=== PATIENT | male | born 1935 | race Caucasian/White ===

== ENCOUNTER 2022-07-03 03:01 | Inpatient (IN) | payer MEDICARE, OTHER ==
[~2022-07-03] VITALS: Ht 188 cm; Wt 82.0 kg
[2022-07-03 13:42] LABS: BASOPHILS ABSOLUTE AUTO 0.06 K/mm3 (0.00-0.23); BASOPHILS PERCENT AUTO 1 % (0-2); EOSINOPHILS ABSOLUTE AUTO 0.06 K/mm3 (0.00-0.68); EOSINOPHILS PERCENT AUTO 1 % (0-6); Hematocrit 42.7 % (37.0-53.0); Hemoglobin 14.2 g/dL (13.5-17.5); IMMATURE GRAN ABSOLUTE AUTO 0.05 K/mm3 (0.00-0.10); IMMATURE GRAN PERCENT AUTO 0 % (0-1); LYMPHOCYTES ABSOLUTE AUTO 1.18 K/mm3 (0.84-5.20); LYMPHOCYTES PERCENT AUTO 10 % (21-46); MONOCYTES ABSOLUTE AUTO 1.45 K/mm3 (0.16-1.47); MONOCYTES PERCENT AUTO 12 % (4-13); Mean Corpuscular HGB 32.6 pg (26.0-34.0); Mean Corpuscular HGB Conc 33.3 g/dL (31.5-36.5); Mean Corpuscular Volume 98 fL (80-100); Mean Platelet Volume 9.9 fL (9.1-12.4); NEUTROPHILS PERCENT AUTO 76 % (41-73); Platelet Count 217 K/mm3 (150-400); RDW Coefficient Variation 13.3 % (11.7-14.2); RDW Standard Deviation 48.3 fL (35.1-46.3); Red Blood Cell Count 4.36 M/mm3 (4.30-5.90)
[2022-07-03 14:13] LABS: Albumin, Blood 3.2 g/dL (3.4-5.0); Bilirubin, Total 0.9 mg/dL (0.1-1.0); Bun/Creatinine Ratio 12.7 (12.0-20.0); Calcium, Blood 8.9 mg/dL (8.5-10.1); Creatinine, Blood 2.37 mg/dL (0.60-1.20); Globulin, Blood 3.1 g/dL (2.2-4.0); Potassium, Blood 4.5 mmol/L (3.5-5.5); Total Protein, Blood 6.3 g/dL (6.4-8.2)
[2022-07-03 14:32] LABS: Creatine Kinase MB 3.5 ng/mL (0.0-3.6)
--- NOTE | 2022-07-03 16:34 | NUR ---
END OF SHIFT: PATIENT ARRIVED FROM [place] [facility]IA [facility], FOR ACUTE CVA, WITH ELEVATED TROP. PATIENT LAST TROP 395. PATIENT RESPONDS TO NAME. IS AND HAS BEEN RECIEVING Q2 TURNS. PATIENT NOW HAS A PAULA POWERGLIDE. PATIENT IN JANETTE DUE TO SAFETY OF SELF AND LINES. PATIENT IS HAVING INCREASED MOTOR STRENGTH IN ALL EXTREMS, PATIENT BEEN CHNAGED DUE TO INCONTINENCY MULTIPLE TIMES BY STAFF. PATIENT IN NO ACUTE SIGN OF DISTRESS. CARDIOLOGY SEEN, PLEASE SEE NOTE. NEURO IS SUPPOSE TO BE SEEING THE PATIENTDAYSI PATIENT IS OFF TO MRI PREMEDICATED BEFORE TRANSPORT WILL SEE IF MRI WAS POSSIBLE. PATIENT HAS ATTENDS IN PLACE DUE TO INCONTINENCY MIXED. WILL CONTINUE TO MONITOR UNTIL SHIFT CHANGE. PATIENT ON RA SPO2>96% NO CONCERNS FROM THIS AMMUNITION ASSEMBLY I LABORER AT THIS TIME.
[2022-07-04 05:10] LABS: BASOPHILS PERCENT AUTO 1 % (0-2); EOSINOPHILS ABSOLUTE AUTO 0.37 K/mm3 (0.00-0.68); EOSINOPHILS PERCENT AUTO 4 % (0-6); Hematocrit 41.6 % (37.0-53.0); Hemoglobin 13.4 g/dL (13.5-17.5); IMMATURE GRAN ABSOLUTE AUTO 0.02 K/mm3 (0.00-0.10); IMMATURE GRAN PERCENT AUTO 0 % (0-1); LYMPHOCYTES ABSOLUTE AUTO 1.65 K/mm3 (0.84-5.20); LYMPHOCYTES PERCENT AUTO 17 % (21-46); MONOCYTES PERCENT AUTO 9 % (4-13); Mean Corpuscular HGB 31.7 pg (26.0-34.0); Mean Corpuscular HGB Conc 32.2 g/dL (31.5-36.5); Mean Corpuscular Volume 98 fL (80-100); NEUTROPHILS ABSOLUTE AUTO 6.69 K/mm3 (1.96-9.15); NEUTROPHILS PERCENT AUTO 69 % (41-73); Platelet Count 213 K/mm3 (150-400); RDW Coefficient Variation 13.3 % (11.7-14.2); RDW Standard Deviation 48.7 fL (35.1-46.3); Red Blood Cell Count 4.23 M/mm3 (4.30-5.90); White Blood Cell Count 9.73 K/mm3 (4.00-11.30)
[2022-07-04 05:25] LABS: Albumin, Blood 3.1 g/dL (3.4-5.0); Albumin/Globulin Ratio 1.1 (0.8-1.8); Calcium, Blood 8.2 mg/dL (8.5-10.1); Creatinine, Blood 2.73 mg/dL (0.60-1.20); Globulin, Blood 2.9 g/dL (2.2-4.0); Potassium, Blood 3.9 mmol/L (3.5-5.5)
--- NOTE | 2022-07-04 06:50 | NUR ---
SHIFT SUMMARY: PATIENT HAS HAD INTERMITTENT MOMENTS OF ALERTNESS - YELLING "I DON'T CARE" AND "SHIT, SHIT, SHIT" DURING REPOSITIONING OR ATTENDS CHANGES. A&O X1. HAS BEEN ACTIVE WITH ALL 4 EXTREMETIES, SLIGHT FACIAL DROOP TO LEFT SIDE, LEFT HAND WEAK, SLOW TO RESPOND TO COMMANDS IF RESPONDS AT ALL. RIGHT EYE OPENED BRIEFLY ~0430, BUT LEFT EYE IS MOST OFTEN SEEN OPEN - BOTH EYES CLOSED MAJORITY OF SHIFT EVEN WHEN PATIENT SPEAKING. BP PERMISSIVELY HIGH, AFEBRILE, O2 SATS >94% RA. CBGS HAVE NOT REQUIRED COVERAGE. URINE STILL BLOOD TINGED THOUGH MORE PINK THAN BEGINNING OF SHIFT. FLUIDS COMPLETE. MEDICATED PER EMAR. PATIENT NPO. DAUGHTER VERENA AT BEDSIDE T/O NIGHT TO PREVENT NEED FOR RESTRAINTS. RESTRAINTS NOT IN PLACE WHEN THIS RN BEGAN SHIFT. BED LOW WITH 3 SIDE RAILS UP. CALL LIGHT IN REACH AND DAUGHTER AT BEDSIDE. WILL CONTINUE TO MONITOR UNTIL REPORT TO DAY RN.
[2022-07-04 08:38] LABS: CHOL/HDL RATIO 3.9; Cholesterol 170 mg/dL (50-200); HDL Cholesterol 44 mg/dL (>39); LDL/HDL RATIO 2.3; Low Density Lipoprotein Chol 102 mg/dL (0-110); Triglycerides 121 mg/dL (30-160); Very Low Density Lipoprot Chol 24 mg/dL (6-32)
[2022-07-04 11:43] LABS: Source, Urine Foley catheter
[2022-07-04 12:05] LABS: Appearance, Urine Bloody (Clear); Bilirubin, Urine Neg (Neg); Blood, Urine 5+ (Neg); Color, Urine Brown (P-Yellow); Glucose Qualitative, Urine 2+ (Neg); Ketones, Urine 2+ (Neg); Leukocyte Esterase, Urine 1+ (Neg); Nitrite, Urine Pos (Neg); Protein, Urine 4+ (Neg); Urobilinogen, Urine 1+ (Normal)
[2022-07-04 12:34] LABS: Red Blood Cells, Urine TNTC /hpf (0-2)
[2022-07-04 12:35] LABS: Bacteria Many /hpf; Squamous Epithelial Cells Rare /hpf (Few)
--- NOTE | 2022-07-04 17:42 | NUR ---
SHIFT SUMMARY; ASSUMED CARE AT 0700. DAUGHTER AT BEDSIDE. A/A/OX1-2. ORIENTED AND FOLLOWS DIRECTIONS AT TIMES, AGITATED AND FIDGETY AT TIMES. MOVES ARMS BILATERALLY AND REACHES FOR THINGS. BILATERAL LEG WEAKNESS, BUT MOVES BOTH EQUALLY. DIFFICULTY FOLLOWING INSTRUCTIONS. BEEF CATTLE GRAZIER EQUAL, LEFT SIDE FACIAL DROOP NOTED WITH SLURRED GARBLED SPEECH AT TIMES. NS INFUSING AT 75ML HOUR, KIRAN PLACED TODAY DRAINING TO GRAVITY. DARK RED URINE DRAINING INTIALLY, GRADUALLY LIGHTENING. WAS TOLD BY PREVIOUS RN POSSIBLE DIFFICULTY KIRAN INSERTION ATTEMPT AT TRANSFERRING HOSPITAL. COUDE PLACED WITHOUT DIFFICULTY. MEPILEX TO COCCYX, Q2 REPOSITIONING, ALTHOUGH MOVES SELF FREQUENTLY ON BED. VSS, WILL CONTINUE TO MONITOR AND TREAT UNTIL CHANGE OF SHIFT.
--- NOTE | 2022-07-05 03:55 | NUR ---
CARE ASSUMPTION: PATIENT AWAKES AT 1940, PULLS AT LINES AND TELE LEADS, NS INFUSING AT 75 MLS/HR. BP PERMISSIVELY HIGH, OTHER VS WNL ON RA. DANI BENAVIDES AT BEDSIDE STATES PATIENT IS NOT A SMOKER AND DOES NOT HAVE A HX OF SMOKING, IN CONTRADICTION WITH MD NOTES. PATIENT PULLED POWERGLIDE X2 - NO IV ACCESS AT THIS TIME. MEDICATED PER EMAR. BED LOW WITH ALARM SET.
[2022-07-05 04:24] LABS: BASOPHILS ABSOLUTE AUTO 0.12 K/mm3 (0.00-0.23); BASOPHILS PERCENT AUTO 1 % (0-2); EOSINOPHILS ABSOLUTE AUTO 0.86 K/mm3 (0.00-0.68); EOSINOPHILS PERCENT AUTO 9 % (0-6); Hematocrit 41.1 % (37.0-53.0); Hemoglobin 13.6 g/dL (13.5-17.5); IMMATURE GRAN ABSOLUTE AUTO 0.06 K/mm3 (0.00-0.10); IMMATURE GRAN PERCENT AUTO 1 % (0-1); LYMPHOCYTES ABSOLUTE AUTO 1.83 K/mm3 (0.84-5.20); LYMPHOCYTES PERCENT AUTO 18 % (21-46); MONOCYTES ABSOLUTE AUTO 0.84 K/mm3 (0.16-1.47); MONOCYTES PERCENT AUTO 8 % (4-13); Mean Corpuscular HGB 31.8 pg (26.0-34.0); Mean Corpuscular HGB Conc 33.1 g/dL (31.5-36.5); Mean Corpuscular Volume 96 fL (80-100); Mean Platelet Volume 9.8 fL (9.1-12.4); NEUTROPHILS ABSOLUTE AUTO 6.36 K/mm3 (1.96-9.15); NEUTROPHILS PERCENT AUTO 63 % (41-73); Platelet Count 216 K/mm3 (150-400); RDW Coefficient Variation 13.2 % (11.7-14.2); RDW Standard Deviation 46.5 fL (35.1-46.3); Red Blood Cell Count 4.28 M/mm3 (4.30-5.90); White Blood Cell Count 10.07 K/mm3 (4.00-11.30)
[2022-07-05 04:39] LABS: Albumin, Blood 3.3 g/dL (3.4-5.0); Albumin/Globulin Ratio 1.1 (0.8-1.8); Bun/Creatinine Ratio 14.9 (12.0-20.0); Calcium, Blood 8.6 mg/dL (8.5-10.1); Creatinine, Blood 1.61 mg/dL (0.60-1.20); Globulin, Blood 3.1 g/dL (2.2-4.0); Total Protein, Blood 6.4 g/dL (6.4-8.2)
--- NOTE | 2022-07-05 06:11 | NUR ---
SHIFT SUMMARY: PATIENT VS WITHIN MD'S PARAMETERS ON RA. MOVEMENT/CONTROL OF LEFT LEG HAS INCREASED T/O SHIFT. PATIENT'S PRODUCTIVITY ENGINEER IN BOTH HANDS ARE EQUAL AT THIS TIME AND BOTH EYES HAVE BEEN OPENIN WITH MORE FREQUENCY. PATIENT STILL LABILE IN FOLLOWING DIRECTIONS, BUT DIFFICULT TO ASSESS IF R/T DEFICIT OR "BEING A STUBBORN OLD MAN" PER FAMILY. PATIENT DID STICK TONGUE OUT STRAIGHT OF HIS OWN ACCORD - NOT UNDER DIRECTION - THIS AM. PATIENT BECAME INCREASINGLY AGITATED AND RESTLESS ~2100. MEDICATED PER EMAR WITH LIMITED TO NO EFFECT. BENADRYL AND ATIVAN DOSE RESULTED IN 90 MIN OF SLEEP. GRANDSON AT BEDSIDE T/O NIGHT - FAMILY DOES NOT WANT RESTRAINTS OUT OF CONCERN WOULD RESULT IN MORE AGITATION. PATIENT DOES NOT HAVE IV ACCESS AT THIS TIME R/T FIGHTING AGAINST RNS ATTEMPTING TO PLACE POWERGLIDES/IVS. PATIENT HR 160S FOR A FEW SECONDS AT 0600. BED LOW WITH CALL LIGHT IN REACH AND GRANDSON AT BEDSIDE. WILL CONTINUE TO MONITOR UNTIL AM REPORT.
--- NOTE | 2022-07-05 18:06 | NUR ---
SHIFT SUMMARY; ASSUMED CARE AT 0700. SLEEPING ON ARRIVAL. UP MOST OF NIGHT PER NOC SHIFT RN. MEDICATED FOR AGITATION WITH ZYPREXA. ARROUSES TO PAINFUL STIMULI. VSS, Q2 TURNS, LINEN CHANGE AND PARTIAL BED BATH, ORAL CARE AND CATH CARE COMPLETE. WAKES IN AFTERNOON AND C/O PAIN TO LEFT HIP AND RIGHT ELBOW, DR. ROCHA UPDATED, XRAY'S ORDERED. MEPILEX TO COCCYX, WILL CONTINUE TO MONITOR AND TREAT UNTIL CHANGE OF SHIFT.
--- NOTE | 2022-07-05 19:00 | NUR ---
ASSUMED CARE/CALL TO MD PT A/O TO SELF AND FAMILY ONLY. TRYING TO GET OOB, AND PULLING AT KIRAN. WAS COMABTIVE WITH REPOSITIONING BACK IN BED. DANGLED AT BEDSIDE. FOLLOWS SIMPLE COMMANDS AT TIMES. FAMILIY AT BEDSIDE. LUNG SOUNDS DIM T/O. PT BREATHING VERY SHALLOW. ON RA, SATS GREATER THAN 92%. PUPILS EQUIL, RN HOSPICE EQUIL, NO DEFICTS NOTED. MOVES ALL EXTREMITIES SPONTANEOUSLY. KIRAN IN PLACE, DRAINING TO GRAVITY. DR TAN NOTIFIED OF PT CONTINUOUSLY TRYING TO GET OOB, PULLING AT KIRAN AND KICKING AT STAFF. ORDERS RECIEVED FOR MEDICATIONS. WHEN THIS RN WENT TO ADMINISTER MEDS, PT FAMILY REQUESTED TO TRY RESTRAINTS AND 'HOLD OFF' ON MEDICATIONS. DR TAN MADE AWARE AND ORDERS RECIEVED.
--- NOTE | 2022-07-06 06:01 | NUR ---
SHIFT SUMMARY PT SLEPT MAJORITY OF NIGHT. AWAKE INTERMITTENTLY TRYING TO GET OOB, AND PULLING AT GOWN/BLANKETS. NO ACUTE EVENTS. T/O NIGHT.
[2022-07-06 11:41] LABS: BASOPHILS ABSOLUTE AUTO 0.13 K/mm3 (0.00-0.23); BASOPHILS PERCENT AUTO 1 % (0-2); EOSINOPHILS ABSOLUTE AUTO 1.03 K/mm3 (0.00-0.68); EOSINOPHILS PERCENT AUTO 10 % (0-6); Hematocrit 41.3 % (37.0-53.0); Hemoglobin 13.9 g/dL (13.5-17.5); IMMATURE GRAN ABSOLUTE AUTO 0.03 K/mm3 (0.00-0.10); IMMATURE GRAN PERCENT AUTO 0 % (0-1); LYMPHOCYTES ABSOLUTE AUTO 1.34 K/mm3 (0.84-5.20); LYMPHOCYTES PERCENT AUTO 14 % (21-46); MONOCYTES ABSOLUTE AUTO 1.06 K/mm3 (0.16-1.47); MONOCYTES PERCENT AUTO 11 % (4-13); Mean Corpuscular HGB 32.7 pg (26.0-34.0); Mean Corpuscular HGB Conc 33.7 g/dL (31.5-36.5); Mean Corpuscular Volume 97 fL (80-100); Mean Platelet Volume 9.8 fL (9.1-12.4); NEUTROPHILS ABSOLUTE AUTO 6.32 K/mm3 (1.96-9.15); NEUTROPHILS PERCENT AUTO 64 % (41-73); Platelet Count 226 K/mm3 (150-400); RDW Standard Deviation 46.6 fL (35.1-46.3); Red Blood Cell Count 4.25 M/mm3 (4.30-5.90); White Blood Cell Count 9.91 K/mm3 (4.00-11.30)
[2022-07-06 12:00] LABS: Bun/Creatinine Ratio 16.8 (12.0-20.0); Creatinine, Blood 1.49 mg/dL (0.60-1.20); Potassium, Blood 3.9 mmol/L (3.5-5.5)
[2022-07-06 13:39] LABS: Base Excess Venous -0.3 mmol/L; Bicarbonate Venous 23.4 mmol/L (24.0-30.0); PCO2 Venous 45.9 mmHg (38-42); pH Blood Venous 7.35 (7.34-7.37)
[2022-07-06 15:04] LABS: Free Thyroxine 1.12 ng/dL (0.70-1.60)
[2022-07-06 15:07] LABS: Triiodothyronine, Free 1.46 pg/mL (2.18-3.98)
--- NOTE | 2022-07-06 18:14 | NUR ---
SHIFT SUMMARY; ASSUMED CARE AT 0700. SLEEPING ON ARRIVAL BUT WAKES EASILY TO VERBAL STIMULI. COOPERATIVE WITH CARE. RESTRAINTS DC'D. FAMILY AT BEDSIDE, WORKS WITH PT/OT/ST. PO INTAKE MINIMAL, IV FLUIDS RESTARTED PER ORDERS. WHILE WORKING WITH PT WAS SITTING IN RECLINER CHAIR AND BECAME "NON RESPONSIVE". STARES TO SIDE, PUPILS FIXED, DOES NOT BLINK, BODY RIDGID. UNABLE TO VERBALLY OR PAINFULL ARROUSE. EPISODE LASTS APPROX 3 MINS, THEN GRANDUALLY STARTS TO SPEAK AND MOVE EXTREMETIES. DR. NELSON NOTIFIED, HEAD CT ORDERED. BECOMES ADJITATED IN LATE AFTERNOON, GRABS AND PULLS AND STAFF, IV, BED RAILS, AND ATTEMPTING TO CRAWL OUT OF BED, YELLS AT STAFF TO GET THE "HELL OUT OF MY ROOM". MULTIPLE ATTEMPTS TO REDIRECT FAILS. BILATERAL WRIST RESTRAINTS PLACED FOR PT SAFTEY. EDUCATED FAMILY. BED BATH, ORAL CARE AND LINEN CHANGE TODAY. VSS, WILL CONTINUE TO MONITOR AND TREAT UNTIL CHANGE OF SHIFT.
--- NOTE | 2022-07-06 19:15 | NUR ---
ASSUMED CARE OF PT @1900. BEDSIDE REPORT GIVEN. PT ALERT BUT CONFUSED. DIFFICULT TO UNDERSTAND. LIFTING LEGS TO HANDS AND PULLING AT KIRAN CATHETER. PT PUTTING LEGS OVER SIDE OF BED TRYING TO GET UP. STATING HE NEEDS TO "GET OUT OF HERE." PT REDIRECTABLE AT TIMES. IV FLUIDS INFUSING @75MLS/HR. SBWR IN PLACE.
[2022-07-07 03:50] LABS: BASOPHILS ABSOLUTE AUTO 0.11 K/mm3 (0.00-0.23); BASOPHILS PERCENT AUTO 1 % (0-2); EOSINOPHILS ABSOLUTE AUTO 1.05 K/mm3 (0.00-0.68); EOSINOPHILS PERCENT AUTO 14 % (0-6); Hemoglobin 14.7 g/dL (13.5-17.5); IMMATURE GRAN ABSOLUTE AUTO 0.02 K/mm3 (0.00-0.10); IMMATURE GRAN PERCENT AUTO 0 % (0-1); LYMPHOCYTES ABSOLUTE AUTO 1.34 K/mm3 (0.84-5.20); LYMPHOCYTES PERCENT AUTO 17 % (21-46); MONOCYTES ABSOLUTE AUTO 0.72 K/mm3 (0.16-1.47); MONOCYTES PERCENT AUTO 9 % (4-13); Mean Corpuscular HGB 31.9 pg (26.0-34.0); Mean Corpuscular HGB Conc 32.7 g/dL (31.5-36.5); Mean Corpuscular Volume 98 fL (80-100); Mean Platelet Volume 9.7 fL (9.1-12.4); NEUTROPHILS ABSOLUTE AUTO 4.54 K/mm3 (1.96-9.15); NEUTROPHILS PERCENT AUTO 58 % (41-73); Platelet Count 193 K/mm3 (150-400); RDW Coefficient Variation 12.9 % (11.7-14.2); RDW Standard Deviation 46.5 fL (35.1-46.3); Red Blood Cell Count 4.61 M/mm3 (4.30-5.90); White Blood Cell Count 7.78 K/mm3 (4.00-11.30)
--- NOTE | 2022-07-07 04:00 | NUR ---
CALL TO PHYSICIAN. DR HUMMEL NOTIFIED OF PT HYPERTENSION. HYDRALAZINE ADDED TO EMAR
[2022-07-07 04:15] LABS: Albumin, Blood 3.2 g/dL (3.4-5.0); Anion Gap 5 mmol/L (6-16); Blood Urea Nitrogen 25 mg/dL (8-24); CO2, Blood 25 mmol/L (21-32); Calcium, Blood 8.4 mg/dL (8.5-10.1); Chloride, Blood 111 mmol/L (98-108); Creatinine, Blood 1.39 mg/dL (0.60-1.20); Glomerular Filtration Rate 49 (60-); Glucose, Blood 105 mg/dL (70-99); Phosphorus, Blood 2.7 mg/dL (2.5-4.9); Potassium, Blood 3.8 mmol/L (3.5-5.5); Sodium, Blood 141 mmol/L (136-145)
--- NOTE | 2022-07-07 06:29 | NUR ---
SUMMARY NO ACUTE EVENTS OVERNIGHT. PT DID NOT HANDLE CRUSHED PILLS ORALLY WELL AT EVENING MEDICATION ADMINISTRATION. WEAK COUGH AND UNABLE TO SWALLOW WELL. PT BECAME RESTLESS AND PULLING AT KIRAN CATHETER AND TRYING TO GET OUT OF BED. PT CALMED AND WENT TO SLEEP AFTER RESTRAINTS APPLIED. PT REMAINED CALM AND ASLEEP REMAINDER OF SHIFT. HYPERTENSION SBP >180 NOTED ON 0400 VITALS. HYDRALAZINE ORDERED IV PER DR TAN, 10MG ADMINISTERED, SBP 130-160'S. IV FLUIDS INFUSING. HR 80'S. RR 14-18. SPO2 >94%. KIRAN CATHETER IN PLACE AND DRAINING DANIELLA URINE TO GRAVITY.
--- NOTE | 2022-07-07 16:15 | NUR ---
Met with Pt's 2 daughters this afternoon. Offered active listening and answered questions. Discussed Pt's wishes for code status and discussed options for life sustaining treatment. Daughters report discussing with Pt's spouse and family feels Pt would not want CPR or intubation. Pt would be agreeable to defibrilation. Spoke with Dr Petersen and relayed Pt's wishes for code status. [facility] for Limited Code of defibrilation only per V/O from Dr Petersen.
--- NOTE | 2022-07-07 17:22 | NUR ---
PT WAS INITIALLY LETHARGIC THIS MORNING, WOULD NOT OPEN EYES VOLUNTARILY AND ANSWERED ALL ORIENTATION QUESTIONS WITH "NO." PT BECAME MORE ALERT THROUGH THE MORNING, AND BY NOON WAS SITTING UP SPEAKING WITH STAFF, HOWEVER STILL CONFUSED. PT WAS ABLE TO WORK WITH SPEECH THERAPY AT LUNCHTIME, CHANGED TO PUREE DIET. PT DID WELL ON NEW DIET, HOWEVER HAD A COUGHING FIT WITH MASHED POTATOES. AROUND 1500 PATIENT BECAME AGITATED AND COMBATIVE, STARTED YELLING AND SWEARING AT STAFF. PT BEGAN SWINGING LIMBS AND PULLING AT LINES. X4 SOFT EXTREMITY RESTRAINTS APPLIED. PT BECAME QUEIT AND NAPPED THIS AFTERNOON. PT WAS AWAKE AND INTERACTING WITH FAMILY BY DINNER TIME, ABLE TO TOLERATE PO INTAKE WELL AT THAT TIME.
--- NOTE | 2022-07-07 21:15 | NUR ---
UPDATE PT DISCONNECTED KIRAN CATH BAG FROM KIRAN CATH. CATH STILL IN PLACE DRAINING URINE. CONNECTED SITE CLEANED THOROUGHLY THEN NEW KIRAN BAG CONNECTED TO SITE. CONNECTION SITE SECURED WITH TAPE. KIRAN PATENT AND DRAINING TO GRAVITY.
[2022-07-08 04:47] LABS: Albumin, Blood 3.1 g/dL (3.4-5.0); Anion Gap 8 mmol/L (6-16); Blood Urea Nitrogen 19 mg/dL (8-24); Bun/Creatinine Ratio 13.9 (12.0-20.0); CO2, Blood 24 mmol/L (21-32); Calcium, Blood 8.2 mg/dL (8.5-10.1); Chloride, Blood 112 mmol/L (98-108); Creatinine, Blood 1.37 mg/dL (0.60-1.20); Glomerular Filtration Rate 50 (60-); Glucose, Blood 128 mg/dL (70-99); Phosphorus, Blood 1.9 mg/dL (2.5-4.9); Potassium, Blood 3.8 mmol/L (3.5-5.5); Sodium, Blood 144 mmol/L (136-145)
--- NOTE | 2022-07-08 06:28 | NUR ---
SHIFT SUMMARY PT HAS BEEN A/O ONLY TO SELF AND OCCASIONAL FAMILY MEMBER. PT OFTEN BECOMES CONFUSED TO HIS SURROUNDINGS AND CAN BECOME AGITATED WITH STAFF AND ATTEMPT TO HIT STAFF WITH HIS HANDS. PT HAS BEEN COOPERATIVE T/O MOST OF MY SHIFT HOWEVER. PT MAINTAINS SPO2 >95% ON RA WITH NO SOB OR DYSPNEA NOTED AT REST. SPEECH CAN BECOME GARBLED AT TIMES AND HIS MENTATION WAXES AND WANES. GROSS MOVEMENT WAS RELATIVELY EQUAL BILAT. PRESSURES AND HR HAVE BEEN STABLE T/O THE SHIFT WITH NO ACUTE CHANGES. MORNING LABS SHOWED PT'S PHOS HAS DECREASED TO 1.9 FROM 2.7. MD NOTIFIED AND PHOS REPLACEMENT HAS BEEN ORDERED. VSS, NADN T/O THE SHIFT
--- NOTE | 2022-07-08 14:48 | NUR ---
END OF SHIFT: PATIENT IS ALERT AND ORIENTED X 1-2, PATIENT HAS BEEN OUT OF RESTRAINTS SINCE THIS AM, PATIENT SLEPT MOST OF THE MORNING LEADING ME TO WAIT UNTIL ALERT ENOUGH TO TAKE MEDICATIONS. ST SEEN PATIENT AND INCREASED TO FULL NECTAR BY CUP. PATIENT HAS WORKED WITH PT, AND IS A 1 P ASSIST WITH FWW AND GAIT BELT. DC'D KIRAN AND TELEMETRY PATIENT HAS BEEN PULLING AT THEM MULTIPLE TIMES WHICH CAUSED SOME VERY MINOR BLEEDING FROM THE URETHRA. PROVIDER AWARE. PATIENT HAS BEEN COOPERATIVE WITH CARE ONCE CORRECTLY DEMONSTRATED AND INSTRUCTED. PATIENT HAS BEEN IN THE CHAIR SINCE LUNCH. PATIENT DENIES CHEST PAIN/PRESSURE AT THIS TIME. PATIENT HAS BEEN ON RA, SPO2 >96%. PATIENT HAD A SMALL BM TODAY. IV HAS BEEN REMOVED AND ALL MEDS ARE ORAL CRUSHED IN APPLESAUCE. PATIENT FAMILY HERE MOST OF THE DAY. DC'D FROM TELE. Q2 REPOSITIONS BY MYSELF AND PCT. BLOOD PRESSURE IS IN BETTER CONTROL TOWARDS THE END OF SHIFT VERSUS THE BEGINNING OF THE SHIFT. NO FURTHER CONCERNS FROM THIS LUBE MAN AT THIS TIME WILL CONTINUE TO MONITOR UNTIL SHIFT CHANGE.
[2022-07-09 00:06] LABS: Source, Urine Foley catheter
[2022-07-09 00:10] LABS: Bilirubin, Urine Neg (Neg); Blood, Urine 5+ (Neg); Glucose Qualitative, Urine 2+ (Neg); Ketones, Urine 1+ (Neg); Leukocyte Esterase, Urine 2+ (Neg); Nitrite, Urine Neg (Neg); Protein, Urine 1+ (Neg); Specific Gravity, Urine 1.015 (1.003-1.022); Urobilinogen, Urine NORM (Normal)
[2022-07-09 00:27] LABS: Appearance, Urine Hazy (Clear); Color, Urine Yellow (P-Yellow)
[2022-07-09 00:29] LABS: Amorphous Light (0-Heavy); Bacteria Few /hpf; Red Blood Cells, Urine 50-100 /hpf (0-2); Squamous Epithelial Cells Not Seen /hpf (Few)
--- NOTE | 2022-07-09 04:26 | NUR ---
UPDATE PT BLADDER SCANNED AND FOUND TO BE RETAINING URINE (537). CONTACTED, KIRAN CATH PLACED PER PHSYICANS ORDER. STERILE FIELD MAINTAINED T/O PROCEDURE. CATH PATENT AND DRAINING CLOUDY/YELLOW URINE TO GRAVITY
--- NOTE | 2022-07-09 05:18 | NUR ---
UPDATE MORNING BP WAS 195/90. MD NOTIFIED OF INCREASED BP. NO NEW ORDERS AT THIS TIME. INTRUCTED TO PASS INCREASED BP TO DAYSHIFT BY . WILL CONTINUE TO MONITOR PT CLOSELY
--- NOTE | 2022-07-09 07:06 | NUR ---
SHIFT SUMMARY PT IS A/Ox1-2 AND HAS BEEN CONFUSED T/O THE SHIFT. PT'S MENATION WAXES AND WANES AND OFTEN BECOMES AGITATED WITH STAFF WHEN RECEIVING CARE. PT RESPONDED WELL WITH 75MG SEROQUEL. PT'S BP HAS STEADILY INCREASED TOWARDS THE END OF THE SHIFT HITTING THE 200'S SBP. MD WAS NOTIFIED AND PRN HYDRALAZINE WAS ORDERED AND GIVEN PER EMAR. PT MAINTAINS SPO2 >95% ON RA WITH NO SIGNS OF SOB OR DYSPNEA NOTED. PT REMAINS IN 4 POINT SOFT RESTRAINTS TO PREVENT PT FROM PULLING AT CORDS, LINES, OR ATTEMPTS TO HIT STAFF. KIRAN REINSERTED LAST NIGHT DO TO URINARY RETENTION (528ML UPON BLADDER SCAN), CATH PATENT AND DRAINING TO GRAVITY. HARDY, MAURICIO
[2022-07-09 15:39] LABS: BASOPHILS ABSOLUTE AUTO 0.04 K/mm3 (0.00-0.23); BASOPHILS PERCENT AUTO 0 % (0-2); EOSINOPHILS PERCENT AUTO 1 % (0-6); Hematocrit 40.3 % (37.0-53.0); Hemoglobin 13.5 g/dL (13.5-17.5); IMMATURE GRAN ABSOLUTE AUTO 0.02 K/mm3 (0.00-0.10); IMMATURE GRAN PERCENT AUTO 0 % (0-1); LYMPHOCYTES ABSOLUTE AUTO 0.69 K/mm3 (0.84-5.20); LYMPHOCYTES PERCENT AUTO 8 % (21-46); MONOCYTES PERCENT AUTO 6 % (4-13); Mean Corpuscular HGB 32.1 pg (26.0-34.0); Mean Corpuscular HGB Conc 33.5 g/dL (31.5-36.5); Mean Corpuscular Volume 96 fL (80-100); Mean Platelet Volume 9.8 fL (9.1-12.4); NEUTROPHILS PERCENT AUTO 85 % (41-73); Platelet Count 254 K/mm3 (150-400); RDW Coefficient Variation 12.9 % (11.7-14.2); RDW Standard Deviation 45.4 fL (35.1-46.3); White Blood Cell Count 9.05 K/mm3 (4.00-11.30)
[2022-07-09 16:00] LABS: Albumin, Blood 3.3 g/dL (3.4-5.0); Albumin/Globulin Ratio 1.1 (0.8-1.8); Bilirubin, Total 0.6 mg/dL (0.1-1.0); Calcium, Blood 8.7 mg/dL (8.5-10.1); Creatinine, Blood 1.77 mg/dL (0.60-1.20); Globulin, Blood 2.9 g/dL (2.2-4.0); Potassium, Blood 3.9 mmol/L (3.5-5.5); Total Protein, Blood 6.2 g/dL (6.4-8.2)
--- NOTE | 2022-07-09 16:43 | NUR ---
END OF CARE SUMMARY: PATIENT WAS VERY HYPERTENSIVE THIS MORNING AND RECIEVED IV HYDRALAZINE 10MG. A LITTLE BIT BEFORE NOON PATIENT BLOOD PRESSURE ALONG WITH MENTATION HAD DETERIORATED. BLOOD PRESSURE STABILIZED MINIMALLY WITH 500mL BOLUS THAT WAS GIVEN ONCE A GRETA ST POWERGLIDE WAS ESTABLISHED. NEW LABS DRAWN, REPEAT CT OF THE HEAD WO CONTRAST, PATIENT WENT FROM ANSWERING QUESTIONS CONFUSED AND NONSENSICAL TO NOW IS ONLY RESPONDS TO PAIN/TOUCH. DOES NOT USE WORDS. PATIENT HAS BEEN RECIEVING Q2 TURNS. PATIENT HAS BEEN IN NO RESPIRATORY DISTRESS. MUSCLES ARE VERY RIGID, WITH NEURO CHECKS Q4. PATIENT WAS OUT OF RESTRAINTS AT 0800 THIS AM AND WAS UP IN THE CHAIR FOR A COUPLE HOURS PRIOR TO COMPLETE MENTATION CHANGE. PROVIDER HAS ROUNDED MULTIPLE TIMES, ADDITIONAL MEDICATION CHNAGES. FAMILY WAS EDUCATED BY THIS RN FOR >45MINUTES. PATIENT AND FAMILY WAS SEEN BY PALLIATIVE CARE WELL. PATIENT CODE STATUS STILL LIMITED DEFIBRILLATION ONLY. THIS ROOF FIXER HELD ALL BLOOD PRESSURE MEDS. PROVIDER AND RN AGREE TO PATIENT BEING UNSAGE TO SWALLOW AT THIS TIME. WILL CONTINUE TO MONITOR.
--- NOTE | 2022-07-09 17:33 | NUR ---
Met with pt, 2 daughters and grandson today at bedside. The pt was not able to participate in discussion. According to bedside RN, pt had a "rough night" with some delerium and pulling out lines. Today however he was lying back in recliner with c/o headache, resolved with tylenol and rest. Dr. Arizmendi met with family, explained the need for restraints as a way of keeping pt safe intermittently. Family appears tired today, they have been here for multiple days, but ask if it's ok that they return home, out of town for the time being. They are discussing the possibiliities of what the senior care situation may look like. Will remain in communication with family for now, continue with education and supportive visits.
[2022-07-10 04:23] LABS: BASOPHILS ABSOLUTE AUTO 0.08 K/mm3 (0.00-0.23); BASOPHILS PERCENT AUTO 1 % (0-2); EOSINOPHILS ABSOLUTE AUTO 0.57 K/mm3 (0.00-0.68); EOSINOPHILS PERCENT AUTO 7 % (0-6); Hematocrit 39.6 % (37.0-53.0); Hemoglobin 12.9 g/dL (13.5-17.5); IMMATURE GRAN ABSOLUTE AUTO 0.03 K/mm3 (0.00-0.10); IMMATURE GRAN PERCENT AUTO 0 % (0-1); LYMPHOCYTES ABSOLUTE AUTO 1.23 K/mm3 (0.84-5.20); LYMPHOCYTES PERCENT AUTO 16 % (21-46); MONOCYTES ABSOLUTE AUTO 0.54 K/mm3 (0.16-1.47); MONOCYTES PERCENT AUTO 7 % (4-13); Mean Corpuscular HGB 31.6 pg (26.0-34.0); Mean Corpuscular HGB Conc 32.6 g/dL (31.5-36.5); Mean Corpuscular Volume 97 fL (80-100); Mean Platelet Volume 10.8 fL (9.1-12.4); NEUTROPHILS ABSOLUTE AUTO 5.35 K/mm3 (1.96-9.15); NEUTROPHILS PERCENT AUTO 69 % (41-73); Platelet Count 214 K/mm3 (150-400); RDW Coefficient Variation 12.9 % (11.7-14.2); RDW Standard Deviation 46.5 fL (35.1-46.3); Red Blood Cell Count 4.08 M/mm3 (4.30-5.90)
[2022-07-10 04:48] LABS: Bun/Creatinine Ratio 11.5 (12.0-20.0); Calcium, Blood 8.3 mg/dL (8.5-10.1); Creatinine, Blood 1.57 mg/dL (0.60-1.20); Potassium, Blood 3.3 mmol/L (3.5-5.5)
--- NOTE | 2022-07-10 05:05 | NUR ---
SHIFT SUMMARY PT'S MENATION HAS WAXED AND WANED WITH THE PT BECOMING MORE ALERT T/O THE SHIFT. PT IS STILL LETHARGIC WELL CONFUSED. A RESULT SOFT WRIST RESTRAINTS WERE ORDERED TO PERVENT PT FROM PULLING AT LINES/CORDS AND TO PREVENT PT FROM FALLING OUT OF BED. WRIST RESTRAINT SITES HAVE BEEN CLOSELY ASSESSED FOR ANY SIGN OF SKIN BREAKDOWN. PT MAINTAINS SPO2 >95% IN RA WITH NO SIGNS OF SOB OR DYSPNEA. BP HAS FLUCTUATED T/O THE SHIFT RANGING FROM 170'S TO THE 110'S. PT FREQUENTLY TURNED AND SKIN REASSESSED FOR SKIN BREAKDOWN. KIRAN IN PLACE AND DRAINING TO GRAVIITY. HARDY, MAURICIO
--- NOTE | 2022-07-10 06:44 | NUR ---
UPDATE PT PUT BACK INTO 4 POINT SOFT RESTRAINTS IN ORDER TO PREVENT PT FROM PULLING AT HIS IV'S AND KIRAN CATH. REPOSITIONING, REORIENTATING, KEEPING LINES OUT OF SITE DID NOT WORK. WILL CONTINUE TO MONITOR SITES AND CONDITION OF PT'S SKIN. MAURICIO
--- NOTE | 2022-07-10 10:40 | NUR ---
ASSUMPTION OF CARE: PATIENT IS CURRENTLY ASLEEP, WILL RESPOND TO VERBAL STIMULI AND OCCASSIONALLY SPOTANEOUSLY OPENS EYES, NO AGITATION AT THIS TIME, RESTING PEACEFULLY, DOES NOT TO APPEAR IN ANY PAIN, AT THIS TIME WILL CONTINUE TO MONITOR, URINE OUTPUT IS SLIGHLY DARKER THAN PREVIOUS DAY, THERE WAS AN INCREASED TO FLUIDS. PATIENT CAN ANSEWR SIMPLE QUESTIONS IS VERY TIRED, AND REFUSED MORNING MEDS, PATIENT APPEARS TO BE IMPROVING FROM YESTERDAY. NO SIGNS OF ACUTE RESPIRATORY OR CARDIAC ACUTE DISTRESS IS RA CURRENLTY AT 95%. RR >12. POWERGLIDE STILL IN PLACE. MUSCLE RIGIDITY HAS DECREASED, OVERALL NEURO/MUSCULAR IMPROVING AT THIS TIME. WILL CONTINUE TO MONITOR.
--- NOTE | 2022-07-10 15:38 | NUR ---
Placed a call to pt's daughter Melissa today, she states she had just heard from Dr. Arizmendi. According to the chart and Dr. Arizmendi, plan is to continue with PT, OT and ST. The plan is still rehab, as long as pt continues to make improvements. He will also need to be out of restraints for 2 to 3 days to be accepted at SNF. Pt will also be receiving a larger dose of seroquel at 7pm, which is pt's normal bedtime according to family. Pt appeared to be resting comfortably when I saw him this afternoon. Will monitor for any changes and update family as needed.
--- NOTE | 2022-07-10 16:55 | NUR ---
TRANSFER SUMMARY: PATIENT NEEDED TO BE IN 4 POINTS FOR TRANSFER AGITATION INCREASED PRIOR TO TRANSFER VIA BED. PATIENT IN NO SIGN OF CARDIAC OR PULMONARY DISTRESS. KATHLEENNET HAD JUST RIPPED OUT POWERGLIDE AND ATTEMPTED TO EIP OUT KIRAN, KIRAN STILL INTACT, REPORT GIVEN TO RECIEVING RN, REPORT UNDERSTOOD WITH NO FURTHER QUESTIONS COMMMETNS OR CONCERNS. NO CONCERNS FROM THIS RN FOR THE PATIENT AT THIS TIME, HOSPITALIST TO CALL FAMILY AND POTENTIALLY CHANGE DIRECTION OF CARE. PALLIATIVE IS ON BOARD.
--- NOTE | 2022-07-10 18:03 | NUR ---
PT TRANSFERED TO THE UNIT, ASSUMED CARE OF THIS PT. ORIENTED TO THE ROOM. PT IS IN 4 POINT RESTRAINTS. CALL LIGHT IS WITIN REACH AND BED IS IN THE LOW POSITION
--- NOTE | 2022-07-11 04:27 | NUR ---
SHIFT SUMMARY 86 YR M ADMITTED ON 07/03/22 FOR CVA/NSTEMI. LIMITED CODE-DEFIBRILLATION ONLY. NO ACUTE CHANGES THIS SHIFT. PT IS STILL IN 4 PONT SOFT RESTRAINTS DUE TO CONFUSION AND PT SAFETY. HE GETS VERY AGITATED AND PULLS AT RESTRAINTS SAYING THAT HE IS LEAVING. HE HAS NOT BEEN COOPERATIVE WITH CARE FROM THIS NURSE OR THE [employer] DRILLING MACHINE OPERATOR. HE IS RESISTANT TO PERSONAL CARE AND YELLS AT AND PUSHES AWAY STAFF THAT ARE TRYING TO TEND TO HIM. THIS NURSE WAS ABLE TO GET HIM TO TAKE HIS MEDS CRUSHED IN PUDDING BUT IT TOOK ALOT OF COAXING AND PATIENCE.
--- NOTE | 2022-07-11 10:50 | NUR ---
PT DAUGHTER CALLED, SPOKE WITH HER REGARDING CURRENT COGNITION AND PLAN FOR D/C. DAUGHTER WILL CALL IN AFTERNOON TO CHECK UP ON DAD AND TRY TO CONTACT HIM DIRECTLY.
--- NOTE | 2022-07-11 14:58 | NUR ---
Pt resting in bed and is confused. Pt in 4 point soft restraints. Pt continuously squirming in bed. Spoke with Dr Arizmendi and discussed case. Called and spoke with Pt's daughter Melissa. Reviewed plan of care and offered supportive phone call. Melissa reports being hopeful that Pt improves and is aware that memory care might need to be considered. Offered active listening and answered questions. Palliative Care will remain available.
--- NOTE | 2022-07-11 17:40 | NUR ---
SHIFT SUMMARY VSS. PT APPETITE GOOD. CONFUSION MILD, MOMENTS OF CLARITY THEN CONFUSION. PT TAKES MEDS CRUSHED WITH APPLESAUCE WELL. KIRAN DRAINING BRIGHT YELLOW URINE. MEPOLIX ON BACK AND COXXYC IN PLACE AND C,D,I. PT GRASPING AT IMAGINARY OBJECTS AT TIMES BUT RESTING WELL NOW. SIDE RAILS UP, BED ALARM ON, AND CALL LIGHT IN REACH.
--- NOTE | 2022-07-11 18:51 | NUR ---
PT PULLED IV. WILL CONTINUE TO MONITOR
--- NOTE | 2022-07-12 03:12 | NUR ---
PARK INTERPRETIVE RANGER SUMMARY INTERMITTENT INCOHERENT MOANS AND PULLING AT RESTRAINTS. REMAINS HIGH FALL RISK AND DOES NOT REDIRECT. VSS. TOLERATES SMALL AMTS OF THICKENED FLUIDS, ASPIRATION PRECAUTIONS MAINTAINED. KIRAN DRAINING LIGHT DANIELLA. DRESSINGS CDI. CALL LIGHT IN REACH. WILL CONTINUE TO MONITOR.
[2022-07-12 08:28] LABS: Bilirubin, Total 0.5 mg/dL (0.1-1.0); Bun/Creatinine Ratio 11.3 (12.0-20.0); Calcium, Blood 8.8 mg/dL (8.5-10.1); Creatinine, Blood 1.33 mg/dL (0.60-1.20); Globulin, Blood 2.9 g/dL (2.2-4.0); Total Protein, Blood 5.9 g/dL (6.4-8.2)
--- NOTE | 2022-07-12 16:48 | NUR ---
SHIFT SUMMARY- VSS. PT SLEEP THROUGHOUT MOST OF DAY, WOKE AROUND 1600. HELD MEDICATIONS UNTIL PT WOKE UP ENOUGH TO REDUCE ASPIRATIONS RISKS. PT PLEASANT VERY CHATTY. C/O PAIN AROUND 1200 MEDICATED SEE EMAR. KIRAN INTACT AND DRAINING CLEAN YELLOW URINE. REMOVED RESTRAINT ANKLES, PT TOLERATING WELL. 2XRESTRAINT AND JANETTE STILL IN PLACE TO PROTECT SAFETY OF PT. DAUGHTER CALL FOR UPDATES AND SPOKE WITH PT DIRECTLY. MENTATION FLUCTUATES. MONMENT HE IS AWARE OF SURROUNDINGS AND FAMILY THEN STATES HE HAS NO "DAUGHTERS" . SIDE RAILS UP, BED ALARM ON AND CALL LIGHT IN [facility].
--- NOTE | 2022-07-13 04:11 | NUR ---
SHIFT SUMMARY PT CONFUSED AOX1 AND IN WRIST RESTRAINTS AND VEST. PT REFUSED ALL MEDS INCLUDING EVENING SEROQUIL, HE WAS ABLE TO SLEEP COMFORTABLY T/O MOST THE NIGHT. EARLY IN THE EVENING PT PULLED OUT HIS KIRAN WHILE IN RESTRAINTS. AT 0330 A BLADDER SCAN SHOWED 285 ML, I PLAN TO DO ANOTHER AROUND 0600. ENCOURAGED FLUIDS AND NUTRITION DURING RESTRAINT CHECKS, PT REFUSED. VSS.
--- NOTE | 2022-07-13 07:56 | NUR ---
pt laying in bed awake a/o to self, coopertive with assessment this am, lungs are clear in [place], dim in bases, on r/a, no cough noted, hrr, no edema noted, ppp+2, cap refill <3sec, vs stable, afebrile, currently in b/l soft wrist restraints, has a skin tear to rwrist and lelbow mepilex to coccyx, briefs in place, yemi ruelas, call light in reach.
--- NOTE | 2022-07-13 09:23 | NUR ---
took po meds crushed in applesauce, up to chair for breakfast, has a word salad, call light in reach, tv turned on for him, chair alarm activated. call light in reach.
--- NOTE | 2022-07-13 11:23 | NUR ---
removed restraints, pt sitting in chair doing well. no further changes, call light in reach.
--- NOTE | 2022-07-13 14:55 | NUR ---
pt is very busy, pulling everything off including briefs, he is confused and frustrated, did eventually get his dose of seroquel in but he wasn't cooperative, and is agitated, parroting everything the nurse says, chair alarm acitvated, continues to pull on briefs. will get him to bed when he calms down. call light in reach.
--- NOTE | 2022-07-13 15:56 | NUR ---
Pt continues to attempt to climb oob, gave a prn seroquel, OT in room working with him at this time, call light in reach.
--- NOTE | 2022-07-13 17:02 | NUR ---
Pt had a rough day today. He began the day without restraints, and bedside RN Srinivasan reports pt was able to follow commands somewhat this am, but became increasingly confused by 1400. He was unable to follow commands with OT today, and has needed prn dose of Seroquel after scheduled 1500 dose. He was unable to follow commands with OT today, and continues having word salad. Had a discussion with pt's daughter Maddi this afternoon. She states feeling like pt's progress is stalled, as there has been no meaningful improvement throughout hospital stay, but not for lack of trying by physicians and hospital staff. She states after having been here for several days visiting her dad last week, she feels confident her dad is getting great care, and states appreciation for the frequency and routine of calls from Dr. Arizmendi keeping her updated. Maddi's sister Melissa is continuing to look at both memory care facilities as well as snf facilities in the [facility] [place], so their bases are covered. However, Maddi states she plans to tell Melissa to look closer at memory cares as this appears to be the direction pt is heading. I plan to continue encouraging and providing support to Melissa with therapeutic listening as she continues to express her concerns, and fear of the unknowns in the pt's future.
--- NOTE | 2022-07-13 17:23 | NUR ---
Pt unrelenting climbing over the rails, staff can't leave him alone for a minute, did place him back in kristen vest and soft ankle restraints. call light in reach, still trying to fight, kick and get oob.
--- NOTE | 2022-07-13 18:37 | NUR ---
pt calmed somewhat being in restraints, is still picking at stuff, no further changes this shift, call light in reach.
--- NOTE | 2022-07-14 02:42 | NUR ---
ALERT TO SELF; FORGETFUL AND IMPULSIVE. COOPERATIVE WITH DAWN MED PASS. SOFT ANKLE RESTRAINTS AND JANETTE VEST IN PLACE AT THIS TIME. NO NON-VERBAL S/S PAIN PRESENT. NO IV ACCESS (OK PER MD ORDER). FOAM DRESSING TO COCCYX CDI. RUE SKIN TEAR; DRESSING REPLACED. INC AND IN ATTENDS. 2X ASSIST TO CHANGE/ REPOSITION; DONE APPROX Q2 HRS PER PROTOCOL. BED ALARM SET, NEEDS ANTICIPATED, FREQUENT ROUNDING, AND CALL LIGHT IN REACH.
--- NOTE | 2022-07-14 17:22 | NUR ---
PT AOX1 WITH CONFUSION. PT CONTINUES TO NEED POSE AND REDIRECTION IN ROOM WHEN HE TRYS TO HANG LEGS OUT. PT CAN GET AGITATED AT TIMES AND IS TREATED PER EMAR. PT IS RETAINGING URINE AND DR ROCHA ORDERD BLADDER SCANS Q8. PT WAS 764 AND WAS STRAIGHT CATHED. BED ALARM IN PLACE WILL CONTINUE TO MONITOR.
--- NOTE | 2022-07-15 02:08 | NUR ---
ALERT TO SELF; IMPULSIVE, MULTIPLE ATTEMPTS TO EXIT BED ALONE. JANETTE VEST RESTRAINT IN PLACE. DENIES PAIN AND NO NON-VERBAL S/S PAIN PRESENT AT THIS TIME. 2X ASSIST TO CHAIR WITH [employer]. [employer] FOAM DRESSING CDI. LUNGS CTA; OCCAISIONAL DRY COUGH. DAUGHTER UPDATED AT BEDSIDE. BED ALARM SET, CALL LIGHT IN REACH, FREQUENT ROUNDING /REPOSITION/ ANTICIPATION OF NEEDS.
--- NOTE | 2022-07-15 13:00 | NUR ---
DAUGHTER STATES THE PATIENT WAS NOT TAKING ANY PRESCRIPTION MEDICATIONS AT HOME PRIOR TO THIS HOSPITALIZATION
--- NOTE | 2022-07-15 17:47 | NUR ---
Case Conf with RN, Pt visit @ bedside and family meeting with MELISSA chun. Pt lying flat, supine, calm and interactive. He is able to repeat my name. S/s assessment - pt denies pain, LOU or anxiety. Sl dyspnea noted while lying flat. Pt states he's hungry when asked, just before dinner time. I did not note any nonverbal indicators of anxiety, pain, restlessness, agitation or distress. RN states pt is able to manage PO intake, crushed medications with soft foods if helped. He is not taking in adequate nutrition to sustain himself even with feeding help. Long conversation with Melissa chun, who is communicating with sister, Rachael and other family members. Melissa states their goal is to get pt back to [place] with Hospice services set up there. The primary question at this time for family to decide is whether pt will reside in his or another family member's home or if they will be looking for placement in a [facility]min [facility] care facility/[facility]/SNF. Pt has expressed he wants to go home but his has stated adamently that he cannot return home even if other family members provide care. She does not want caregivers/hospice personnel coming in her home. Arnaud and family to cont to explore best option in light of family dynamics. I believe pt can safely travel by private car and [facility] is very receptive to this, with arrangement of another family member to assist with the transport and ride while someone else is driving. Pt can comfortably transfer and be up in a recliner or chair per his RN. Our primary concern is if he became agitated, as he has at times. We discussed prn medications for agitation, pain, anxiety, nausea etc. We discussed comfort measures and that his current care is very similar to what comfort measures looks like, with the exception of additional PRN medications on comfort care. Melissa appreciative of the visit and problem solving for d/c. Melissa hopeful she can work with CM on Sun to get pt back to [place] with hospice and DME set up. Pt will need a BSC, WC, hospital bed, OB table, shower/tub bench or chair, depending on the BR set up. Family to spend the next 24 hours working out details and plan for care. All of above reviewed with RN and Senior Research Analyst. Plan visit tomorrow for f/u with pt on s/s and with arnaud and further planning, answering questions.
--- NOTE | 2022-07-15 19:13 | NUR ---
PATIENT IS ALERT AND ORIENTED TO DESMOND AND DAUGHTER AT TIMES. HE BECOMES AGITATED WITH STAFF. PATIENT WAS PLACED IN 4 POINT RESTRAINTS AND A JANETTE THIS AFTERNOON BECAUSE HE BECAME AGITATED AND PULLED ON HIS PENIS AND BEGAN SCRATCHING HIS ARMS. PATIENT HAS HAD A LITTLE ORAL INTAKE THIS SHIFT, HIS DAUGHTER BROUGHT IN CHOCOLATE ICECREAM FOR HIM THIS EVENING. THE PATIENT'S DAUGHTER SPOKE WITH PALLIATIVE CARE THIS AFTERNOON. REPORT GIVEN TO ONCMALACHI CONTRERAS
--- NOTE | 2022-07-16 03:39 | NUR ---
NIGHTSHIFT SUMMARY Patient Alert/Oriented to self. Daughter at bedside, patient appears irritable, telling daughter/staff to leave. Declined to take HS medications at this time. Patient awake most of the night, during night patient awake calling out, staff offered fluids, pt dranks thicken water, also gave PRN seroquel. Bladder scanned- 474mL, straight cathed 400mL output. Patient in kristen/soft wrist/ankle restraints. Patient removed depends, mepilex, bedding. Attempted to reorient patient. Vitals stable. Will continue to monitor.
--- NOTE | 2022-07-16 15:24 | NUR ---
Pt lying flad in bed, quiet currently, with eyes open. EMR reviewed and cont periods of agitation noted over past 24 hours. Arnaud and family would like to take pt back to [place] by private care and that seemed like a possibilty when I saw pt yesterday but with his agitation and restraints for safety required since my previous visit I am unsure if that would be possible. VM left for CM#2 who will be here tomorrow, with update on events of the WE and daughter's request for assist with plan to get pt home and set up with DME and hospice in his community. I will try to reach arnaud by phone for progress with their family in identifying where pt will be going on d/c. I have not found her visiting in pt's room today.
--- NOTE | 2022-07-16 15:36 | NUR ---
Family field contact person - Arnaud Torres's cell # [phone] I was able to reach Melissa this afternoon re: dc plans for pt. She is gathering family help, states she's made some headway with pt's on allowing him to return to their home to receive hospice care there. Gave her the name of CM who would most likely be working with her tomorrow to assist with dc. Melissa states her son has offered to assist with post dc arrangements, transportation and care also.
--- NOTE | 2022-07-16 20:02 | NUR ---
NO ACUTE CHANGES. DAUGHTER AT BEDSIDE THROUGH OUT MOST OF SHIFT. RESTRAINTS FOR PT SAFETY. ROOM AIR. STRAIGHT CATHED 450ML. BED IN LOWEST POSITION, FREQUENT MONITORING.
--- NOTE | 2022-07-17 04:00 | NUR ---
NIGHTSHIFT SUMMARY Patient alert to self, pleasant mood, visiting with daughter. Pt declined to take HS meds. Resting comfortably all night, respirations even/nonlabored. Offered food/drink, pt declined. Bladder scan this AM, 64mL, did not straight cath. Patient sleeping soundly, removed soft ankle restraints, kristen vest still in place for safety. Vitals stable.
--- NOTE | 2022-07-17 12:27 | NUR ---
PATIENT DECLINING LUNCH. FOOD LUISA UP TO LIPS. PATIENT SHAKES HEAD NO AND CLENCHES LIPS TIGHTER. BREAKFAST WAS ALSO DECLINED.
--- NOTE | 2022-07-17 17:54 | NUR ---
PATIENT WAS TAKEN OUT OF VEST RESTRAINT AT THE BEGINNING OF THE SHIFT. AFTERWARD, HE BECAME ACTIVE AGAIN, ATTEMPTING TO GET UP AND NOT TAKING CUES FROM STAFF. STAFF WAS ABLE TO EVENTUALLY WORK WITH PATIENT TO SETTLE HIM DOWN AND HE WAS WAS COMPLIANT AND PLEASANT THE REST OF THIS SHIFT. HE TOOK HIS EVENING DOSE OF 50 MG SEROQUEL AND HAS BEEN RESTING SINCE THAT TIME. SMALL AMOUNTS OF POWER PUDDING AND SIPS OF THICKENED JUICE WERE GIVEN FOR NUTRITION. DAUGHTER WAS PRESENT MOST OF THIS SHIFT AND SPENT HER TIME TRYING TO ESTABLISH DISCHARGE PLANNING. ADJUSTMENT EXAMINER IS WORKING WITH DAUGHTER AND A DISCHARGE IS PROMISING TOMORROW.
--- NOTE | 2022-07-17 20:27 | NUR ---
CALLED HOSPITALIST PT AGITATED AT SHIFT CHANGE. PT ATTEMPTING TO FREQUENTLY EXIT THE BED. HIGH FALL RISK. PT IS CONFUSED. PT IS CALLING OUT FAMILY/FRIENDS NAMES. ORDER FOR VEST RESTRAINT RECEIVED
--- NOTE | 2022-07-18 04:49 | NUR ---
SHIFT SUMMARY ADMITTED FOR ACUTE STROKE. DNR CODE. PLAN IS BEING ARRANGED WITH HELP OF CARE MANAGEMENT. PT IS CONFUSED. JANETTE VEST APPLIED FOR SAFETY. PT FREQUENTLY ATTEMPTING TO EXIT BED, CANNOT BE REDIRECTED. PT DID SLEEP SOUNDLY THROUGH LATTER HALF OF SHIFT. PT REFUSED MEDS AND VITALS. BLADDER SCANS Q8 HOURS. PUREE DIET, CRUSH RX W/APPLESAUCE. PT REMOVED MEPILEX THIS SHIFT, REFUSED TO LET US REAPPLY MEPILEX.
--- NOTE | 2022-07-18 17:22 | NUR ---
SHIFT SUMMARY PT IS AOX1. HE HAS REFUSED MEDICATIONS TODAY. HE REFUSED TO PARTICPATE WITH PT/OT TODAY. SPEECH THERAPY INTERACTED WITHT HE PT TODAY. HE HAS BEEN LABILE, SOMETIMES GETTING AGITATED WITH STAFF. HE HAS BEEN ATTEMPTING TO GET OUT OF HIS RESTRAINTS ALL DAY. WE ATTEMPTED TO GIVE HIM SEROQUEL TO HELP WITH THE AGITATION BUT HE PROCEEDED TO SPIT IT OUT. THERE WERE NO FAMILY MEMBERS AT THE BS TODAY. HE WAS STRAIGHT CATHED TODAY AND REMOVED 400ML. HE DID NOT RECEIVE ANY RESPIRATORY THERAPY TODAY BECAUSE HE WAS ASLEEP WHEN THEY ARRIVED.
--- NOTE | 2022-07-19 04:16 | NUR ---
SHIFT SUMMARY ADMITTED FOR ACUTE ISCHEMIC STROKE. DNR CODE. PLAN IS FOR DC HOME W/HOSPICE. ALTHOUGH FAMILY HAS EXPRESSED CONCERNS REGARDING THIS PLAN. BLADDER SCANS Q 8 HRS COMPLETED. STRAIGHT CATH REQUIRED ONCE THIS SHIFT. PT DID ACCEPT TWO SMALL BITES OF PUDDING THIS SHIFT AND I WAS ABLE TO ADMINISTER TWO OF HIS MEDS CRUSHED IN THAT. HE REFUSED ANY MORE. HE IS IMPULSIVE AND CONFUSED. HE DOES REFUSE CARE AT TIMES.
--- NOTE | 2022-07-19 17:21 | NUR ---
SHIFT SUMMARY PT HAS BEEN COOPERATIVE AND FOLLOWING DIRECTIONS THIS SHIFT. HE HAS BEEN EATING MORE THAN YESTERDAY. HE TOOK ALMOST ALL OF HIS MEDICATIONS TODAY. HIS DAUGHTER CALLED AND DISCUSSED COMING TOMORROW TO PICK HIM UP. HE HAS BEEN SLEEPING A MAJORITY OF THE SHIFT, WAKING UP AND TRYING TO GET OUT OF BED BUT ABLE TO BE REDIRECTED. HE RECEIVED A BED BATH TODAY AND TOLERATED IT WELL. HIS RESTRAINTS WERE DISCONTINUED TODAY AT 1736.
--- NOTE | 2022-07-20 04:35 | NUR ---
MUSSEL OPENER SUMMARY PT HAD LONG PERIODS OF WAKEFULLNESS T/O THE NIGHT; PT BECAME AGITATED, MULTPLE ATTEMPTS TO GET OUT OF BED, DIFFICULT TO REDIRECT, AND COMBATIVE. CALLED HOSPITALIST--RENEWED ORDER FOR VEST RESTRAINT. PT HAD TWO BOWEL MOVMENTS; PT WOULD NOT LEAVE ATTENDS IN PLACE AND BM SOILED LINNENS; 2 COMPLETE LINNEN CHANGES THIS SHIFT. PT ABLE TO TAKE NIGHT MEDS W/MAJIC CUP. CONT TO ASSESS RESTRAINTS Q2 HRS.
[2022-07-20 08:01] LABS: Source, Urine Foley catheter
[2022-07-20 08:12] LABS: Appearance, Urine Clear (Clear); Bilirubin, Urine Neg (Neg); Blood, Urine Neg (Neg); Color, Urine Yellow (P-Yellow); Glucose Qualitative, Urine 1+ (Neg); Ketones, Urine 1+ (Neg); Leukocyte Esterase, Urine 1+ (Neg); Nitrite, Urine Neg (Neg); Protein, Urine 2+ (Neg); Specific Gravity, Urine 1.025 (1.003-1.022); Urobilinogen, Urine NORM (Normal)
[2022-07-20 08:31] LABS: Red Blood Cells, Urine 0-2 /hpf (0-2); Squamous Epithelial Cells Not Seen /hpf (Few); White Blood Cells, Urine 0-2 /hpf (0-5)
[2022-07-20 08:32] LABS: Bacteria Rare /hpf
[2022-07-20] MEDS ORDERED: ACET325 PO (12:33)
[2022-07-20] MEDS ORDERED: Amlodipine Bes2.5 MG PO (12:34)
[2022-07-20] MEDS ORDERED: ASPI81CH PO (12:35)
[2022-07-20] MEDS ORDERED: ATOR40TA PO (12:38)
[2022-07-20] MEDS ORDERED: FAMO20 PO (12:39)
[2022-07-20] MEDS ORDERED: METOPROLOL TART50 M6 PO (12:41)
[2022-07-20] MEDS ORDERED: ONDA4ODT MM (12:43)
[2022-07-20] MEDS ORDERED: QUET25 PO ×2 (12:44)
[2022-07-20] MEDS ORDERED: QUET100 PO (12:45)
[2022-07-20] MEDS ORDERED: DOCU100 PO (12:45)
[2022-07-20] MEDS ORDERED: SENN187 PO (12:46)
--- NOTE | 2022-07-20 16:50 | NUR ---
DISCHARGE NOTE PT WAS DISCHARGED TO HIS DAUGHTER TO BE TAKEN HOME. MEDICATIONS WERE SENT TO [facility] IN [place], [place] ON [facility]. SPOKE WITH THE PHARMACIST TO CONFIRM THE SCRIPTS WERE RECEIVED AND WILL BE FILLED. PT'S FAMILY WAS EDUCATED BY THE PHARMACISTS AND ANY QUESTIONS WERE DISCUSSED. PT WAS TRANSFERRED VIA WHEELCHAIR.
--- NOTE | 2022-07-20 16:50 | NUR ---
SPOKE WITH THE PHARMACIST AT [facility] IN [place], [place], THE PHARMACY THE PT'S DAUGHTER REQUESTED. THE ORDERS WERE CONFIRMED ON THEIR END AND THEY ARE SET TO BE FILLED.
== END 2022-07-20 16:42 | disposition home or self-care (01) | DRG 64 ==
LOC: MEDS 03:01 → PCU 03:01 → MEDS 07-10 16:13
PROVIDERS: Family Medicine; Internal Medicine; ADMIT Internal Medicine
DX: I63.89 Other cerebral infarction (principal); G92.8 Other toxic encephalopathy; I21.4 Non-ST elevation (NSTEMI) myocardial infarction; N17.9 Acute kidney failure, unspecified; F05 Delirium due to known physiological condition; N39.0 Urinary tract infection, site not specified; R41.4 Neurologic neglect syndrome; Z66 Do not resuscitate; R56.9 Unspecified convulsions; I95.9 Hypotension, unspecified; R47.1 Dysarthria and anarthria; E78.5 Hyperlipidemia, unspecified; E88.09 Other disorders of plasma-protein metabolism, not elsewhere classified; K21.9 Gastro-esophageal reflux disease without esophagitis; B95.7 Other staphylococcus as the cause of diseases classified elsewhere; R33.9 Retention of urine, unspecified; R13.10 Dysphagia, unspecified; N18.30 Chronic kidney disease, stage 3 unspecified; E11.22 Type 2 diabetes mellitus with diabetic chronic kidney disease; Z79.899 Other long term (current) drug therapy; M19.021 Primary osteoarthritis, right elbow
CPT/HCPCS: 36415; 51701; 51702; 70450; 70544; 70551; 71045; 73070; 73502; 76770; 80048; 80053; 80061; 80069; 81001; 82533; 82550; 82553; 82803; 82947; 83036; 83605; 84145; 84146; 84439; 84443; 84481; 84484; 85025; 87077; 87086; 87186; 92526; 92610; 93005; 93010; 94762; 95819; 97110; 97112; 97162; 97166; 97530; 97535; A9270; C1751; C8929; C9113; J0360; J0690; J0696; J1200; J1630; J1650; J1815; J1953; J2060; J3480; J7030; J7040; J7042; Q9957